=== PATIENT | female | born 1940 | race Caucasian/White ===

== ENCOUNTER → 2016-06-22 | Outpatient (CLI) | payer OTHER ==
--- NOTE | ~2016-06-22 | BD1 ---
[facility] A Service of [facility] & [facility] RADIOLOGY TEXT RESULTS PATIENT: SHAHID HAWLEY LOCATION: [facility] : 36 UNIT #: [id number] AGE: [address]: DEBBIE MO APRN SEX: F ORDER DR: [id number] [facility] [address] [facility]. [place], [place] [address] [id number] O MR#: [id number] Acc #: [id number] NAME: SHAHID HAWLEY : 1940 SEX: F STUDY DATE/TIME: 06/22/2016 11:03 UNIT: [facility] ROOM: STUDY DESCRIPTION: BD Dexa Bone Dens 1+ Site Attending Physician: Debbie Mo M.D. Ordering Physician: Debbie Mo M.D. Primary Care Physician: Debbie Mo M.D. MEDICAL IMAGING REPORT This report is preliminary unless electronic signature is present EXAM DXA scan HISTORY Postmenopausal screening for osteoporosis. FINDINGS Bone density was assessed utilizing a Hologic bone densitometer. Total bone density within the lumbar spine was calculated at 0.786 g/cm2 with a T-score of -2.4. Total bone density of the proximal left femur was calculated at 0.755 g/cm2 with a T-score of -.1.5. IMPRESSION Patient's total bone density within the lumbar spine and within the proximal left femur is between 1-2.5 standard deviations below the mean and is compatible with World Health Organization Classification for osteopenia. This places the patient at increased fracture risk. Dictated by... Denisse Avian M.D. THIS IS AN ELECTRONICALLY VERIFIED REPORT Denisse Avina M.D. at 06/22/2016 5:01 PM [email or web address]/[email or web address] TD: 06/22/2016 14:33 JOB #: [id number] MEDICAL IMAGING REPORT COPY
== END | disposition home or self-care (01) ==
LOC: CWCC 10:27
DX: Z78.0 Asymptomatic menopausal state (principal)
CPT/HCPCS: 77080